=== PATIENT | male | born 1950 | race Caucasian/White ===

== ENCOUNTER 2023-03-29 11:04 | Day surgery (SDC) | payer MEDICAID ==
[~2023-03-29] VITALS: Ht 167.6 cm; Wt 64.5 kg
[~2023-03-29 11:04] MED LIST: ACETYLCHOLINE CHLORIDE 1 EA INTRAOCULAR SOLUTION KIT IO ONE; BALANCED SALT 15 ML OPHTHALMIC IRRIG.SOLN ONE; EPINEPHrine 1:1,000 [1 MG/ML] VIAL ONE; LIDOCAINE/PF 1% 2 ML VIAL ONE; RINGERS SOLUTION,LACTATED 500 ML IV ONE
[2023-03-29] MEDS ORDERED: MIDAZOLAM HCL 2 MG/2 ML VIAL IVP ONE (11:05)
[2023-03-29] MEDS ORDERED: FentaNYL CITRATE PF 100 MCG/2 ML VIAL IVP ONE (11:05)
[2023-03-29] MEDS ORDERED: TETRACAINE HCL/PF 0.5% 4 ML OPHTHALMIC SOLUTION ONE ×2 (11:26→12:00)
[2023-03-29] MEDS ORDERED: MOXIFLOXACIN HCL 0.5% 3 ML OPHTHALMIC SOLUTION ONE (11:27)
[2023-03-29] MEDS ORDERED: PHENYLEPHRINE HCL 2.5% 2 ML OPHTHALMIC SOLUTION ONE (11:27)
[2023-03-29] MEDS ORDERED: CYCLOPENTOLATE HCL 1% 2 ML OPHTHALMIC SOLUTION ONE (11:27)
[2023-03-29] MEDS ORDERED: FLURBIPROFEN SODIUM 0.03% 2.5 ML OPHTHALMIC SOLUTION ONE (11:27)
[2023-03-29] MEDS ORDERED: TROPICAMIDE 1% 2 ML OPHTHALMIC SOLUTION ONE (11:27)
[2023-03-29] MEDS ORDERED: ENAL-88 PO (11:55)
[2023-03-29] MEDS ORDERED: ATOR40TA28 PO (11:56)
[2023-03-29] MEDS ORDERED: SPIR-37 PO (11:56)
[2023-03-29] MEDS ORDERED: FURO40 PO (11:57)
[2023-03-29] MEDS ORDERED: METF-1211 PO (11:58)
[2023-03-29] MEDS ORDERED: ASPI-1450 PO (11:58)
[2023-03-29] MEDS ORDERED: CARV6 PO (11:59)
[2023-03-29] MEDS ORDERED: RINGERS SOLUTION,LACTATED 500 ML IV ONE (12:00)
[2023-03-29] MEDS: FLURBIPROFEN SODIUM 0.03% 2.5 ML OPHTHALMIC SOLUTION OD SCH ×3 (12:17→12:29)
[2023-03-29] MEDS: TETRACAINE HCL/PF 0.5% 4 ML OPHTHALMIC SOLUTION OD SCH ×3 (12:17→12:29)
[2023-03-29] MEDS: TROPICAMIDE 1% 2 ML OPHTHALMIC SOLUTION OD SCH ×3 (12:18→12:30)
[2023-03-29] MEDS: MOXIFLOXACIN HCL 0.5% 3 ML OPHTHALMIC SOLUTION OD SCH ×3 (12:18→12:32)
[2023-03-29] MEDS: PHENYLEPHRINE HCL 2.5% 2 ML OPHTHALMIC SOLUTION OD SCH ×3 (12:18→12:30)
[2023-03-29] MEDS: CYCLOPENTOLATE HCL 1% 2 ML OPHTHALMIC SOLUTION OD SCH ×3 (12:18→12:29)
[2023-03-29 12:27] LABS: GLUCOMETER DEV NAME(LOC) SDS.
[2023-03-29] MEDS ORDERED: ACETAMINOPHEN 325 MG TABLET PO PRN (12:30)
[2023-03-29] MEDS ORDERED: OXYGEN THERAPY IH SCH (20:00)
[2023-03-31] MEDS ORDERED: LOSA-381 PO (12:41)
== END 2023-03-29 14:15 | disposition home or self-care (01) ==
LOC: SURGERY 11:04
PROVIDERS: ATTEND Ophthalmology
DX: E11.36 Type 2 diabetes mellitus with diabetic cataract (principal); H25.11 Age-related nuclear cataract, right eye; I10 Essential (primary) hypertension; Z79.899 Other long term (current) drug therapy
CPT/HCPCS: 66984; 82962; J0171; J3010; J3490; J2250; J7120; V2632

== ENCOUNTER 2023-05-31 10:55 | Day surgery (SDC) | payer MEDICARE, MEDICAID ==
[~2023-05-31] VITALS: Ht 167.6 cm; Wt 64.5 kg
[~2023-05-31 10:55] MED LIST changes: -ACETYLCHOLINE CHLORIDE 1 EA INTRAOCULAR SOLUTION KIT IO ONE; +ASPI-1450 PO; +ATOR40TA28 PO; +CARV6 PO; +CYCLOPENTOLATE HCL 1% 2 ML OPHTHALMIC SOLUTION ONE; +ENAL-88 PO; +FURO40 PO; +LOSA-381 PO; +METF-1211 PO; +MOXIFLOXACIN HCL 0.5% 3 ML OPHTHALMIC SOLUTION ONE; +PHENYLEPHRINE HCL 2.5% 2 ML OPHTHALMIC SOLUTION ONE; +POVIDONE-IODINE 5% 30 ML OPHTHALMIC SOLUTION ONE; +SPIR-37 PO; +TETRACAINE HCL/PF 0.5% 4 ML OPHTHALMIC SOLUTION ONE; +TROPICAMIDE 1% 2 ML OPHTHALMIC SOLUTION ONE
[2023-05-31] MEDS ORDERED: BALANCED SALT 15 ML OPHTHALMIC IRRIG.SOLN ONE (11:13)
[2023-05-31] MEDS: PHENYLEPHRINE HCL 2.5% 2 ML OPHTHALMIC SOLUTION OS SCH ×3 (11:49→12:17)
[2023-05-31] MEDS: TROPICAMIDE 1% 2 ML OPHTHALMIC SOLUTION OS SCH ×3 (11:49→12:17)
[2023-05-31] MEDS: TETRACAINE HCL/PF 0.5% 4 ML OPHTHALMIC SOLUTION OS SCH ×3 (11:49→12:17)
[2023-05-31] MEDS: FLURBIPROFEN SODIUM 0.03% 2.5 ML OPHTHALMIC SOLUTION OS SCH ×3 (11:49→12:17)
[2023-05-31] MEDS: MOXIFLOXACIN HCL 0.5% 3 ML OPHTHALMIC SOLUTION OS SCH ×3 (11:49→12:16)
[2023-05-31] MEDS: CYCLOPENTOLATE HCL 1% 2 ML OPHTHALMIC SOLUTION OS SCH ×3 (11:49→12:17)
[2023-05-31] MEDS ORDERED: PrednisoLONE ACETATE 1% 5 ML OPHTHALMIC SUSPENSION ONE (11:53)
[2023-05-31] MEDS ORDERED: HYALURONATE SOD 8.5MG/0.85ML 10 MG/ML SYRINGE IO ONE (12:00)
[2023-05-31] MEDS ORDERED: MIDAZOLAM HCL 2 MG/2 ML VIAL IVP ONE (12:00)
[2023-05-31] MEDS ORDERED: FentaNYL CITRATE PF 100 MCG/2 ML VIAL IVP ONE (12:00)
[2023-05-31 12:31] LABS: GLUCOMETER DEV NAME(LOC) SDS.; GLUCOSE,POINT OF CARE 159 MG/DL (70-110)
[2023-05-31] MEDS ORDERED: ACETAMINOPHEN 325 MG TABLET PO PRN (13:30)
[2023-05-31] MEDS ORDERED: RINGERS SOLUTION,LACTATED 500 ML IV ONE (14:30)
== END 2023-05-31 14:45 | disposition home or self-care (01) ==
LOC: SURGERY 10:55
PROVIDERS: ATTEND Ophthalmology
DX: E11.36 Type 2 diabetes mellitus with diabetic cataract (principal); H25.12 Age-related nuclear cataract, left eye; I10 Essential (primary) hypertension; Z79.899 Other long term (current) drug therapy; Z98.890 Other specified postprocedural states
CPT/HCPCS: 66982; 93005; 82962; J0171; J3010; J3490; J2250; Q9967; J7120; V2632